=== PATIENT | male | born 1980 | race Caucasian/White ===

== ENCOUNTER 2016-08-13 17:04 | Emergency (ER) | payer SELFPAY ==
[~2016-08-13] VITALS: Wt 86.4 kg
[~2016-08-13 17:04] MED LIST: ALB.5NB20 IH
[2016-08-13] MEDS ORDERED: CLOT30CR24 TOP (18:12)
--- NOTE | 2016-08-13 18:20 | ERD ---
ER Documentation Chief Complaint Date/Time DATE: 08/13/16 TIME: 18:14 Chief Complaint "athletes foot" to both feet. hx adhd HPI This patient is a 36-year-old undomiciled male with no significant medical history presenting to the emergency department for bilateral foot pain and itching. He states this is been ongoing for several months and has worsened since he has been living on the streets. 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 He denies any chest pain, shortness of breath, fevers, chills, nausea, vomiting, diarrhea or other symptoms. There are no other alleviating or exacerbating factors at this time. ROS All systems reviewed and are negative except as per history of present illness. Medications Home Meds Active Scripts Clotrimazole* (Clotrimazole* AF) 1% - 30 Gm Cream.gm., 1 APPLIC TOP BID for 7 Days, TUB Prov:MAXX GONZALEZ PA-C 08/13/16 Reported Medications Albuterol Sulfate* (Albuterol Sulfate* Neb) 20 Ml Nebu, 20 ML IH Y 04/13/13 Allergies Allergies: Coded Allergies: iodine (Verified Allergy, Unknown, 05/03/14) Uncoded Allergies: PENICILLIN (Allergy, Unknown, 05/03/14) PMhx/Soc History of Surgery: No Anesthesia Reaction: No Hx Neurological Disorder: No Hx Respiratory Disorders: Yes (ASTHMA) Hx Cardiac Disorders: No Hx Psychiatric Problems: No Hx Miscellaneous Medical Probl: No Hx Alcohol Use: No Hx Substance Use: No Hx Tobacco Use: Yes Smoking Status: Current every day smoker FmHx Noncontributory to chief complaint. Physical Exam Vitals Vital Signs Date Time Temp Pulse Resp B/P Pulse Ox O2 Delivery O2 Flow Rate FiO2 08/13/16 17:22 97.0 106 20 176/81 98 Physical Exam INITIAL VITAL SIGNS: Reviewed by me GENERAL: The patient is well developed and appropriate for usual state of health in no apparent distress HEENT: Pupils equal, round, and reactive to light. EOMI. There is no scleral icterus. NECK: C-spine is soft and supple, there is no meningismus. There is no cervical lymphadenopathy. LUNGS: Clear to auscultation bilaterally. There are no rales, wheezes or rhonchi. HEART: Regular rate and rhythm, no murmurs, clicks, rubs or gallops. ABDOMEN: Soft, non-tender, non-distended. There are bowel sounds in all four quadrants. No rebound or guarding. EXTREMITIES: There is no peripheral cyanosis or edema. No focal swelling or erythema. NEUROLOGICAL: The patient moves all four extremities with 5/5 strength. Normal gait. Alert and oriented SKIN: Multiple fungal nails present with mild flaking on the soles of the feet bilaterally. HEME/LYMPHATIC: There is no evidence of excessive bruising or lymphedema. PSYCHIATRIC: The patient does not appear anxious or depressed. Procedures/MDM 36-year-old male with no significant medical history presenting to the emergency department with bilateral athlete's foot. He also is requesting a [facility] form to be filled out so that he may donate plasma. I told the patient that this would not be possible at this time as it must be filled out by [facility] physician and requires close blood pressure monitoring and follow-up, and he may also require prescriptions. On physical examination, there is flaking to the soles of the feet bilaterally. The patient's primary diagnosis is tinea pedis and I have given him a prescription for Lotrimin. He is stable for outpatient management. Patient agrees with the plan and his questions and concerns have been addressed at this time Departure Diagnosis: Primary Impression: Tinea pedis Condition: Stable Referrals: [facility] YOU HAVE RECEIVED A MEDICAL SCREENING EXAM AND THE RESULTS INDICATE THAT YOU DO NOT HAVE A CONDITION THAT REQUIRES URGENT TREATMENT IN THE EMERGENCY DEPARTMENT. FURTHER EVALUATION AND TREATMENT OF YOUR CONDITION CAN WAIT UNTIL YOU ARE SEEN IN YOUR DOCTORS OFFICE WITHIN THE NEXT 1-2 DAYS. IT IS YOUR RESPONSIBILITY TO MAKE AN APPOINTMENT FOR FOL-UP CARE. IF YOU HAVE A PRIMARY DOCTOR --you should call your primary doctor and schedule an appointment IF YOU DO NOT HAVE A PRIMARY DOCTOR YOU CAN CALL OUR PHYSICIAN REFERRAL HOTLINE AT IF YOU CAN NOT AFFORD TO SEE A PHYSICIAN YOU CAN CHOSE FROM THE FOLLOWING [facility] [address]. [facility] [address] [facility] [address] [facility]. [facility] [address] [facility]. [facility] [address]. [facility]. [address] Additional Instructions: Follow-up with your primary care physician within 1 week. Return to the emergency department immediately should you have any new or worsening symptoms, uncontrolled fevers, or other unexplained symptoms. Take all medications as directed. Patient's blood pressure was elevated (>120/80) but appears stable without evidence of hypertension emergency or urgency. The patient was counseled about the risks of hypertension and urged to pursue outpatient monitoring and therapy within a week with their primary care physician. MAXX GONZALEZ PA-C Aug 13, 2016 18:20
== END 2016-08-13 18:47 | disposition home or self-care (01) ==
LOC: FTE 17:04
DX: B35.3 Tinea pedis (principal); J45.909 Unspecified asthma, uncomplicated; F17.210 Nicotine dependence, cigarettes, uncomplicated
CPT/HCPCS: 99283